=== PATIENT | female | born 1965 | race African-American/Black ===

== ENCOUNTER 2017-02-14 16:17 | Emergency (ER) | payer OTHER ==
[~2017-02-14] VITALS: Ht 165.1 cm; Wt 108.9 kg
[~2017-02-14 16:17] MED LIST: ATENOLOL-CHLOR1 EAC2 ORAL; CEPHALEXIN500 MG ORAL; CIPRO500 MG PO; CYCLOBENZAPRINE10 MG ORAL; IBUPROFEN600 MG ORAL; IBUPROFEN800 MG ORAL; KENALOG 0.025%15 GM TP; KETOCONAZOLE15 GM TP; METRONIDAZOLE500 MG ORAL; NORCO 5-325 TA1 EACH ORAL
[2017-02-14] MEDS ORDERED: ELBOW STRAP1 EACH MC (16:41)
[2017-02-14] MEDS ORDERED: IBUPROFEN600 MG ORAL (16:41)
[2017-02-14 16:46] VITALS: BP 129/90
--- NOTE | 2017-02-14 17:23 | Emergency Room Report ---
History of Present Illness General Chief Complaint: Pain Present Illness HPI The patient is a 51-year-old female presenting for right arm pain which began 2 weeks prior. Denies any known injury. She does admit to lifting heavy at work on a daily basis. Pain is described as an 8/10 dull ache and is worse with touch and movement. She denies radiating pain. She denies trying any medications. She denies other symptoms including rash, F, chills, numbness Allergies: Coded Allergies: No Known Allergies (Unverified , 12/19/14) Patient History Past Medical History: see triage record Pertinent Family History: none Reviewed Nursing Documentation: PMH: Agreed, PSxH: Agreed Nursing Documentation-PMH Hx Hypertension: Yes Hx Cerebrovascular Accident: Yes Review of Systems All Other Systems: negative except mentioned in HPI Physical Exam Vital Signs Date Time Temp Pulse Resp B/P Pulse Ox O2 Delivery O2 Flow Rate FiO2 02/14/17 16:18 97.7 66 20 129/90 100 Room Air Sp02 EP Interpretation: reviewed, normal General Appearance: no apparent distress, alert, GCS 15, non-toxic Head: normocephalic, atraumatic Eyes: bilateral eye PERRL, bilateral eye normal inspection ENT: hearing grossly normal, normal pharynx, no angioedema, normal voice Neck: full range of motion, supple/symm/no masses Musculoskeletal: normal inspection, digits/nails normal, normal range of motion , tender - TTP over the R medial epicondyle Neurologic: alert, oriented x3, responsive, motor strength/tone normal, sensory intact, speech normal Psychiatric: judgement/insight normal, memory normal, mood/affect normal, no suicidal/homicidal ideation Skin: normal color, no rash, warm/dry, well hydrated Lymphatic: no adenopathy Medical Decision Making PA Attestation Dr. Bañuelos is my supervising physician. Patient management was discussed with my supervising physician Diagnostic Impression: Primary Impression: Epicondylitis elbow, medial Qualified Codes: M77.01 - Medial epicondylitis, right elbow ER Course The patient is a 51-year-old female presenting with right elbow pain Ddx considered include but not limited to sprain/strain, fracture, contusion, tendonitis PE: NAD Right arm: No obvious deformity. Full active range of motion of the elbow. No ecchymosis no edema. There is tenderness to palpation over the medial epicondyle and noted pain with pronation against resistance. The patient is discharged home with RICE instructions, motrin, and prescription for a forearm band. ER precautions given Last Vital Signs Date Time Temp Pulse Resp B/P Pulse Ox O2 Delivery O2 Flow Rate FiO2 02/14/17 16:46 97.7 20 129/90 100 Room Air 02/14/17 16:18 66 Status: improved Disposition: HOME, SELF-CARE Condition: Improved Scripts Arm Brace (ELBOW STRAP) 1 Each Each 1 EACH , #1 Prov: RACHEL ORTEGA 02/14/17 Ibuprofen* (MOTRIN*) 600 Mg Tablet 600 MG ORAL Q8H Y for For Pain, #30 TAB 0 Refills Prov: RACHEL ORTEGA 02/14/17 Patient Instructions: Medial Epicondylitis With Rehab-Sports[facility] Additional Instructions: I discussed my findings with the patient. All questions and concerns have been answered. Treatment and medication compliance have been addressed. I advised the patient that they need to follow up with PMD in 3-5 days. Return to ED if pain remains or worsens, numbness or tingling occurs, new rash is noticed, fever is noticed, or if needed for any reason. Patient verbalized understanding of discharge instructions. RACHEL ORTEGA Feb 14, 2017 17:23
== END 2017-02-14 16:47 | disposition home or self-care (01) ==
LOC: EMR 16:31
DX: M77.01 Medial epicondylitis, right elbow (principal); I10 Essential (primary) hypertension; Z86.73 Personal history of transient ischemic attack (TIA), and cerebral infarction without residual deficits
CPT/HCPCS: 99284

== ENCOUNTER 2018-07-10 13:41 | Emergency (ER) | payer MEDICAID, OTHER ==
[~2018-07-10] VITALS: Ht 165.1 cm; Wt 122.5 kg
[~2018-07-10 13:41] MED LIST changes: +ELBOW STRAP1 EACH MC
--- NOTE | 2018-07-10 13:55 | Emergency Room Report ---
History of Present Illness General Chief Complaint: Chest Pain Source: Patient, Medical Record Present Illness HPI The patient is a 53-year-old female presented after increased the shortness of breath and chest discomfort. Patient reports having increased nonproductive cough. Patient had onset of symptoms approximate 3 days prior to arrival. She denies any fever. She had not been having any leg pain or swelling. She denies productive cough. She has prior history of hypertension. Patient is not - a smoker. Allergies: Coded Allergies: No Known Allergies (Unverified , 07/10/18) Patient History Past Medical History: see triage record Reviewed Nursing Documentation: PMH: Agreed; PSxH: Agreed Nursing Documentation-PMH Past Medical History: No History, Except For Hx Hypertension: Yes Hx Cerebrovascular Accident: Yes - 2003 Review of Systems All Other Systems: negative except mentioned in HPI Physical Exam Vital Signs Date Time Temp Pulse Resp B/P (MAP) Pulse Ox O2 Delivery O2 Flow Rate FiO2 07/10/18 13:46 98.8 72 26 160/67 98 Room Air Sp02 EP Interpretation: reviewed, normal General Appearance: normal inspection, well appearing, no apparent distress, alert, obese Head: atraumatic ENT: normal ENT inspection, hearing grossly normal, normal voice Neck: normal inspection, full range of motion, supple, no bony tend Respiratory: normal inspection, lungs clear, normal breath sounds, no respiratory distress, no retraction, no wheezing Cardiovascular #1: regular rate, rhythm, no edema Gastrointestinal: normal inspection, normal bowel sounds, non tender, soft, no guarding, no hernia Genitourinary: no CVA tenderness Musculoskeletal: normal inspection, back normal, normal range of motion Neurologic: normal inspection, alert, oriented x3, responsive, municipal court magistrate III-XII nml as tested, speech normal Psychiatric: normal inspection, judgement/insight normal, mood/affect normal Skin: normal inspection, normal color, no rash Medical Decision Making Diagnostic Impression: Primary Impression: Chest pain Additional Impressions: Pneumonia Abnormal EKG ER Course Patient presented for chest pain.Differential diagnosis included but was not limited to acute coronary syndrome, pulmonary embolism, pneumonia, aortic dissection, shingles, pneumothorax, aortic dissection, esophageal rupture, pericarditis. Because of complexity of patient's case laboratory testing and imaging studies were ordered. The EKG interpreted by me showed normal sinus rhythm with a rate of [address] depression in the lateral inferior leads. The patient noted have elevated white blood count as well as elevated lactic acid level. Chest x-ray one view read by radiology showed subtle left sided infiltrate. The patient was given IV azithromycin she is also giving a breathing treatment as well as IV steroids. The patient was subsequently given aspirin. The patient's previous EKG was noted to be normalThe patient was discussed with Dr. [facility] Labs Test 07/10/18 14:16 07/10/18 14:40 White Blood Count 16.2 K/UL (4.8-10.8) Red Blood Count 5.39 M/UL (4.20-5.40) Hemoglobin 15.7 G/DL (12.0-16.0) Hematocrit 46.8 % (37.0-47.0) Mean Corpuscular Volume 87 FL (80-99) Mean Corpuscular Hemoglobin 29.1 PG (27.0-31.0) Mean Corpuscular Hemoglobin Concent 33.4 G/DL (32.0-36.0) Red Cell Distribution Width 12.7 % (11.6-14.8) Platelet Count 362 K/UL (150-450) Mean Platelet Volume 6.0 FL (6.5-10.1) Neutrophils (%) (Auto) 72.0 % (45.0-75.0) Lymphocytes (%) (Auto) 19.8 % (20.0-45.0) Monocytes (%) (Auto) 6.9 % (1.0-10.0) Eosinophils (%) (Auto) 0.7 % (0.0-3.0) Basophils (%) (Auto) 0.7 % (0.0-2.0) Sodium Level 141 MMOL/L (136-145) Potassium Level 3.2 MMOL/L (3.5-5.1) Chloride Level 102 MMOL/L (98-107) Carbon Dioxide Level 29 MMOL/L (21-32) Anion Gap 10 mmol/L (5-15) Blood Urea Nitrogen 13 mg/dL (7-18) Creatinine 1.1 MG/DL (0.55-1.30) Estimat Glomerular Filtration Rate > 60 mL/min (>60) Glucose Level 90 MG/DL (74-106) Calcium Level 9.7 MG/DL (8.5-10.1) Total Bilirubin 0.1 MG/DL (0.2-1.0) Aspartate Amino Transf (AST/SGOT) 15 U/L (15-37) Alanine Aminotransferase (ALT/SGPT) 36 U/L (12-78) Alkaline Phosphatase 94 U/L (46-116) Total Creatine Kinase 155 U/L (26-308) Creatine Kinase MB 2.3 NG/ML (0.0-3.6) Creatine Kinase MB Relative Index 1.4 Troponin I 0.098 ng/mL (0.000-0.056) Pro-B-Type Natriuretic Peptide 220 pg/mL (0-125) Total Protein 9.0 G/DL (6.4-8.2) Albumin 3.7 G/DL (3.4-5.0) Globulin 5.3 g/dL Albumin/Globulin Ratio 0.7 (1.0-2.7) EKG Diagnostic Results Rate: normal Rhythm: NSR ST Segments: other - inferior twave inversion, lateral st depression Last Vital Signs Date Time Temp Pulse Resp B/P (MAP) Pulse Ox O2 Delivery O2 Flow Rate FiO2 07/10/18 13:46 98.8 72 26 160/67 98 Room Air Status: unchanged Disposition: XFER [facility] Condition: Serious Christiano Bañuelos MD Jul 10, 2018 13:55
[2018-07-10 14:00] VITALS: BP 124/67
[2018-07-10] MEDS ORDERED: Ipratropium 0.02% Inh Soln 2.5ml UD HHN ONE (14:00)
[2018-07-10] MEDS ORDERED: Albuterol ud Inhalation HHN ONE (14:00)
[2018-07-10 14:34] LABS: BASOPHILS % (AUTO) 0.7 % (0.0-2.0); EOSINOPHILS % (AUTO) 0.7 % (0.0-3.0); HEMATOCRIT 46.8 % (37.0-47.0); HEMOGLOBIN 15.7 G/DL (12.0-16.0); LYMPHOCYTES % (AUTO) 19.8 % (20.0-45.0); MEAN CORPUSCULAR VOLUME 87 FL (80-99); MONOCYTES % (AUTO) 6.9 % (1.0-10.0); PLATELET COUNT 362 K/UL (150-450); RED BLOOD COUNT 5.39 M/UL (4.20-5.40); RED CELL DISTRIBUTION WIDTH 12.7 % (11.6-14.8); WHITE BLOOD COUNT 16.2 K/UL (4.8-10.8)
[2018-07-10 14:40] LABS: ANION GAP 10 mmol/L (5-15); BLOOD UREA NITROGEN 13 mg/dL (7-18); CALCIUM 9.7 MG/DL (8.5-10.1); CARBON DIOXIDE 29 MMOL/L (21-32); CHLORIDE 102 MMOL/L (98-107); CREATININE 1.1 MG/DL (0.55-1.30); POTASSIUM 3.2 MMOL/L (3.5-5.1); SODIUM 141 MMOL/L (136-145)
[2018-07-10] MEDS ORDERED: Azithromycin 500 MG in D5W 275 ML IVPB ONE (14:45)
[2018-07-10 14:55] LABS: ALANINE AMINOTRANSFERASE 36 U/L (12-78); ALBUMIN 3.7 G/DL (3.4-5.0); ALBUMIN/GLOBULIN RATIO 0.7 (1.0-2.7); ALKALINE PHOSPHATASE 94 U/L (46-116); ASPARTATE AMINO TRANSFERASE 15 U/L (15-37); BILIRUBIN,TOTAL 0.1 MG/DL (0.2-1.0); CKMB 2.3 NG/ML (0.0-3.6); CREATINE KINASE 155 U/L (26-308)
[2018-07-10] MEDS ORDERED: Solu-MEDROL 125mg Inj IVP ONE (15:00)
--- NOTE | 2018-07-10 15:17 | Diagnostic Imaging Report ---
EXAM: XR Chest, 1 View CLINICAL HISTORY: SOB TECHNIQUE: Frontal view of the chest. COMPARISON: No relevant prior studies available. FINDINGS: Lungs: Subtle opacity left lower lobe may be atelectasis/infiltrate. Vascularity within normal limits. Pleural space: Unremarkable. No pneumothorax. Heart: Heart size upper limits normal. Mediastinum: Unremarkable. Bones/joints: Mild degenerative changes of the spine. IMPRESSION: Subtle opacity left lower lobe may be atelectasis/infiltrate.
[2018-07-10] MEDS ORDERED: Aspirin Baby 81mg ORAL ONE (15:30)
[2018-07-10] MEDS ORDERED: guaiFENesin 100mg/5ml Liq ud ORAL ONE (15:30)
[2018-07-10 16:00] VITALS: BP 139/56
[2018-07-10 19:12] VITALS: BP 141/85
[2018-07-10] MEDS ORDERED: Morphine Sulfate 2mg/ml Inj IVP ONE (19:45)
[2018-07-10 19:47] VITALS: BP 156/74
[2018-07-10 21:27] VITALS: BP 141/85
== END 2018-07-10 21:27 | disposition short-term general hospital (02) ==
LOC: EMR 14:16
DX: R07.89 Other chest pain (principal); J18.9 Pneumonia, unspecified organism; R94.31 Abnormal electrocardiogram [ECG] [EKG]; I10 Essential (primary) hypertension; Z86.73 Personal history of transient ischemic attack (TIA), and cerebral infarction without residual deficits
CPT/HCPCS: 36415; 71045; 80053; 82550; 82553; 83605; 83880; 84484; 85025; 85379; 87040; 93005; 94640; 94664; 96365; 96375; 99285; J0456; J2270; J2930

== ENCOUNTER 2018-09-09 09:30 | Emergency (ER) | payer MEDICAID ==
[~2018-09-09] VITALS: Ht 165.1 cm; Wt 117.9 kg
[2018-09-09] MEDS ORDERED: CLARITIN5 MG ORAL (09:49)
[2018-09-09] MEDS ORDERED: METOPROLOL TART25 MG ORAL (09:49)
[2018-09-09] MEDS ORDERED: LIPITOR40 MG ORAL (09:49)
[2018-09-09] MEDS ORDERED: HYDROCHLOROTHIA25 MG ORAL (09:49)
--- NOTE | 2018-09-09 10:00 | NUR ---
ED Nurse Note:pt. came with right 2,3 finger numbness and pain for 2 weeks, skin is intact no visible swelling noted
[2018-09-09 11:25] VITALS: BP 144/85
--- NOTE | 2018-09-09 11:25 | NUR ---
ED Nurse Note: pt discharge instruction provided, pt splint done by certified dialysis technician, pt advised to follow up with pcp in 2-3days, pt education done, pt verbalized understanding and agrees with plan, pt vss, ambulatory w/ steady gait, dressing intact, wrist band removed.
--- NOTE | 2018-09-09 12:42 | Diagnostic Imaging Report ---
Indication: Right hand Technique: 3 views right hand Comparison: none Findings: No acute fractures. No dislocations. The joint spaces are preserved. Bony alignment is normal. Impression: Negative
--- NOTE | 2018-09-10 07:47 | Emergency Room Report ---
History of Present Illness General Chief Complaint: Pain Source: Patient Present Illness HPI Patient presents with complaints of right index finger discomfort she feels that essentially when it is extended recently She has a hard time flexing the finger downwards Sometimes it stays straight And appears to be what she describes as almost 'stuck' Denies any trauma denies any wrist pain denies any neuropathy there is some discomfort associated with it approximately on the finger itself Allergies: Coded Allergies: No Known Allergies (Unverified , 07/10/18) Patient History Past Medical History: see triage record Pertinent Family History: none Last Menstrual Period: 2003, total hystrectomy Reviewed Nursing Documentation: PMH: Agreed; PSxH: Agreed Nursing Documentation-PMH Past Medical History: No History, Except For Hx Hypertension: Yes Hx Cerebrovascular Accident: Yes - 2003 Review of Systems All Other Systems: negative except mentioned in HPI Physical Exam Vital Signs Date Time Temp Pulse Resp B/P (MAP) Pulse Ox O2 Delivery O2 Flow Rate FiO2 09/09/18 09:43 98.2 69 14 172/85 95 Room Air Sp02 EP Interpretation: reviewed, normal General Appearance: well appearing, no apparent distress Head: normocephalic, atraumatic Eyes: bilateral eye PERRL, bilateral eye EOMI ENT: normal pharynx Neck: supple Musculoskeletal: other - On my evaluation patient has appropriate flexion extension of the digits involved, sensory is intact, there was some questionable swelling involved to the proximal aspect of the medial aspect of the index finger dorsally but no obvious erythema Neurologic: alert, oriented x3, responsive Skin: normal color Lymphatic: no adenopathy Procedures Splinting Splinting : Consent: Verbal Location: Right index finger Pre-Made Type: metal Splint: finger splint Pre-Proc Neuro Vasc Exam: normal Post-Proc Neuro Vasc Exam: normal Patient Tolerated: Well Complications: None Medical Decision Making Diagnostic Impression: Primary Impression: finger sprain Additional Impression: tendinitis ER Course Given the history exam initial imaging was obtained to evaluate any bony abnormality this was negative patient did have a splint applied given the possibility of a tendon Ligamental type issue/ Patient will have close outpatient follow-up and return with any changes Other X-Ray Diagnostic Results Other X-Ray Diagnostic Results : X-Ray ordered: Right hand # of Views/Limited Vs Complete: 3 View Indication: Pain EP Interpretation: Yes Interpretation: no dislocation, no soft tissue swelling, no fractures Impression: No acute disease Electronically Signed by: Ronak Benson DO Last Vital Signs Date Time Temp Pulse Resp B/P (MAP) Pulse Ox O2 Delivery O2 Flow Rate FiO2 09/09/18 11:25 98.2 78 16 140/88 98 Room Air Status: improved Disposition: HOME, SELF-CARE Condition: Improved Referrals: NON PHYSICIAN (PCP) Patient Instructions: Tendinitis, Finger Sprain, [id number] Additional Instructions: Patient is provided with the discharge instructions notified to follow up with primary doctor in the next 2-3 days otherwise return to the er with any worsening symptoms. Please note that this report is being documented using [employer] technology. This can lead to erroneous entry secondary to incorrect interpretation by the dictating instrument. Ronak Benson DO Sep 10, 2018 07:47
== END 2018-09-09 11:25 | disposition home or self-care (01) ==
LOC: EMR 10:16
DX: S63.610A Unspecified sprain of right index finger, initial encounter (principal); X58.XXXA Exposure to other specified factors, initial encounter; Y92.9 Unspecified place or not applicable; M77.9 Enthesopathy, unspecified; I10 Essential (primary) hypertension; Z86.73 Personal history of transient ischemic attack (TIA), and cerebral infarction without residual deficits
CPT/HCPCS: 29130; 99283

== ENCOUNTER 2019-05-04 09:44 | Emergency (ER) | payer MEDICAID ==
[~2019-05-04] VITALS: Ht 162.6 cm; Wt 113.4 kg
[~2019-05-04 09:44] MED LIST changes: +CLARITIN5 MG ORAL; +HYDROCHLOROTHIA25 MG ORAL; +LIPITOR40 MG ORAL; +METOPROLOL TART25 MG ORAL
[2019-05-04] MEDS ORDERED: UNOBMED (10:00)
--- NOTE | 2019-05-04 10:00 | NUR ---
ED Nurse Note: Patient does not know name of her meds. Addendum: 05/04/19 at 1001 by JEN Patient reporst no headache, dizziness or CP at this time.
--- NOTE | 2019-05-04 10:12 | NUR ---
ED Nurse Note: ambulated in to ED due to right knee pain with swelling after tripped and fall at home. denies dizziness prior to injury. Ice pack applied on right knee. No abrasion noted
[2019-05-04] MEDS ORDERED: Acetaminophen 500mg (ES) tab ORAL ONE (10:30)
[2019-05-04] MEDS ORDERED: Naproxen 500mg tab ORAL ONE (10:30)
[2019-05-04] MEDS ORDERED: NAPROXEN250 MG ORAL (10:39)
--- NOTE | 2019-05-04 10:39 | Emergency Room Report ---
History of Present Illness General Chief Complaint: Lower Extremity Injury Source: Patient Present Illness HPI 54-year-old female presents with right knee pain after hitting it against the mattress railing, patient endorses sharp pain worsened with movement alleviated with rest, severity is moderate intermittent patient denies any dislocation of the right knee patient was amatory afterwards, no numbness tingling no weakness. Allergies: Coded Allergies: No Known Allergies (Unverified , 07/10/18) Patient History Past Medical History: see triage record Last Menstrual Period: 2003; hystrectomy Reviewed Nursing Documentation: PMH: Agreed; PSxH: Agreed Nursing Documentation-PMH Past Medical History: No History, Except For Hx Cardiac Problems: Yes - 'Borderline heart attack' Hx Hypertension: Yes - Total hystrectomy, , Uterine fibroids removal Hx Pacemaker: No Hx Asthma: No Hx COPD: No Hx Diabetes: No Hx Cancer: No Hx Gastrointestinal Problems: No Hx Dialysis: No History Of Psychiatric Problem: No Hx Neurological Problems: No Hx Cerebrovascular Accident: Yes - 2003 Hx Seizures: No Review of Systems All Other Systems: negative except mentioned in HPI Physical Exam Vital Signs Date Time Temp Pulse Resp B/P (MAP) Pulse Ox O2 Delivery O2 Flow Rate FiO2 05/04/19 09:54 98.2 86 16 204/98 (133) 94 Room Air Sp02 EP Interpretation: reviewed, normal General Appearance: well appearing, no apparent distress, alert Head: normocephalic, atraumatic Eyes: bilateral eye PERRL, bilateral eye EOMI ENT: uvula midline, moist mucus membranes Neck: supple, thyroid normal, supple/symm/no masses Respiratory: no respiratory distress, no retraction, no accessory muscle use Musculoskeletal: normal inspection, other - Right knee swelling noted, 2+ popliteal, 2+ PT, DP, cap refill less than 3 seconds, valgus varus stress negative anterior posterior drawer negative, 5 out of 5 strength plantar dorsiflexion of the ankle, 5 out of 5 strength extension flexion of the knee patient is able to ambulate Neurologic: alert, oriented x3 Psychiatric: mood/affect normal Skin: no rash, warm/dry Medical Decision Making Diagnostic Impression: Primary Impression: Injury of lower extremity Qualified Codes: S89.91XA - Unspecified injury of right lower leg, initial encounter Additional Impression: Contusion of right knee Qualified Codes: S80.01XA - Contusion of right knee, initial encounter ER Course 54-year-old female presents with contusion of the right knee X-ray negative disposition home with return precautions Other X-Ray Diagnostic Results Other X-Ray Diagnostic Results : X-Ray ordered: Right Knee # of Views/Limited Vs Complete: 2 View Indication: Pain EP Interpretation: Yes Interpretation: no dislocation, no fractures, other - Joint effusion noted Impression: No acute disease Electronically Signed by: Alex Avila MD Last Vital Signs Date Time Temp Pulse Resp B/P (MAP) Pulse Ox O2 Delivery O2 Flow Rate FiO2 05/04/19 09:54 98.2 86 16 204/98 (133) 94 Room Air Disposition: HOME, SELF-CARE Condition: Stable Scripts Naproxen* (NAPROSYN*) 250 Mg Tablet 250 MG ORAL BID PRN for For Pain, #20 TAB 0 Refills Prov: Alex Avila MD 05/04/19 Referrals: NON PHYSICIAN (PCP) [facility] Jig[facility] P[facility] Patient Instructions: Knee Effusion, [id number], Knee Pain, [id number] Additional Instructions: The patient was provided with discharge instructions, notified to follow-up with a primary care doctor and or specialist in the next 24-48 hours, and to return to the ED if they have worsening of their symptoms. Please note that this report is being documented using [employer] technology. This can lead to erroneous entry secondary to incorrect interpretation by the dictating instrument. Alex Avila MD May 04, 2019 10:39
[2019-05-04 11:03] VITALS: BP 169/105
--- NOTE | 2019-05-04 11:04 | NUR ---
ED Nurse Note: Pt cleared by health care Provider for discharge. DC instructions/prescription was given and explained to pt and verbalized understanding of teachings. All medical deviecs such as ID band removed. Pt is AAO x4, ambulatory and left with all personal belongings.
--- NOTE | 2019-05-04 14:36 | Diagnostic Imaging Report ---
Indication: Knee pain Technique: 3 views of the right knee Comparison: None Findings: No suprapatellar effusion. No acute fractures. No dislocations. The joint spaces are preserved Impression: Negative
== END 2019-05-04 11:04 | disposition home or self-care (01) ==
LOC: EMR 10:20
DX: S80.01XA Contusion of right knee, initial encounter (principal); Z90.710 Acquired absence of both cervix and uterus; Z86.73 Personal history of transient ischemic attack (TIA), and cerebral infarction without residual deficits; W22.03XA Walked into furniture, initial encounter; Y92.003 Bedroom of unspecified non-institutional (private) residence as the place of occurrence of the external cause
CPT/HCPCS: 99283